=== PATIENT | female | born 1960 | race American Indian/Alaskan Native ===

== ENCOUNTER 2019-03-12 06:21 | Day surgery (SDC) | payer BC ==
[2019-03-12] MEDS ORDERED: NACL 0.9% 500 ML 500 ML IV SCH (07:00)
[2019-03-12] MEDS ORDERED: ADRENALIN ONE (08:38)
[2019-03-12] MEDS ORDERED: NITROSTAT SL ONE (08:38)
[2019-03-12] MEDS ORDERED: ATROPINE 0.1% (CARDIAC) ONE (08:38)
--- NOTE | 2019-03-12 09:19 | Short Stay Summary ---
Short Stay Documentation Date of service: 03/12/19 - History H&P: obtained from office - Allergies and Medications Current Medications: Allergies ibuprofen [From Motrin] Allergy (Severe, Verified 03/12/19 06:46) CAUSES RENAL FAILURE ketorolac [From Toradol] Allergy (Severe, Verified 03/12/19 06:46) CAUSES REANAL FAILURE Home Medications Medication Instructions Recorded Confirmed Last Taken Type Butalbit/Acetamin/Caff/Codeine 1 tab PO PRN PRN 03/12/19 03/12/19 03/11/19 History [Vvunac-Xvghootocpf-Wmxv-Codein] 1 tab Citalopram [Celexa] 20 mg PO DAILY 03/12/19 03/12/19 03/11/19 History 20mg Famotidine [Pepcid] 20 mg PO DAILY 03/12/19 03/12/19 03/11/19 History 20mg Gabapentin [Neurontin] 300 mg PO BID 03/12/19 03/12/19 1 Day Ago History ~03/11/19 HYDROcodone/APAP 5-325 [Nicholson 1 tab PO Q6H PRN 03/12/19 03/12/19 03/10/19 History 5-325 mg TAB] 1 tab Lisinopril [Zestril TAB] 10 mg PO DAILY 03/12/19 03/12/19 02/19/19 History 10mg Omeprazole 40 mg PO DAILY 03/12/19 03/12/19 03/11/19 History 40mg Promethazine [Phenergan] 25 mg PO BID PRN 03/12/19 03/12/19 03/11/19 History 25mg Ranitidine HCl [Zantac] 300 mg PO HS 03/12/19 03/12/19 03/11/19 History 300mg clonazePAM [KlonoPIN] 0.5 mg PO PRN PRN 03/12/19 03/12/19 03/11/19 History 0.5mg Active Medications Sodium Chloride (Nacl 0.9% 500 Ml) 500 mls @ 50 mls/hr IV DIRECT ESTEBAN Last Admin: 03/12/19 07:54 Dose: 50 mls/hr Documented by: - Physical exam General appearance: no acute distress Integumentary: no rash HEENT: Atraumatic Lungs: Clear to auscultation Breasts: deferred Heart: Regular rate Gastrointestinal: normal Female Genitourinary: deferred Rectal Exam: deferred Extremities: no ischemia Neurological: Normal gait - Brief post op/procedure progress note Date of procedure: 03/12/19 Pre-op diagnosis: Syncope Post-op diagnosis: same Procedure: TTT Anesthesia: none Findings: See report Surgeon: HEAVEN HERNANDEZ Estimated blood loss: none Pathology: none Condition: stable - Hospital course Hospital course: Uneventful - Disposition Condition at discharge: Good Disposition: DC-01 TO HOME OR SELFCARE Short Stay Discharge Plan Activity: advance as tolerated Weight Bearing Status: Weight Bear as Tolerated Diet: low fat, low cholesterol, low salt Follow up with: MONIQUE FRAUSTO MD [Primary Care Provider] - 7 Days
[2019-03-12] MEDS ORDERED: TYLENOL PO ONE (09:34)
[2019-03-12] MEDS ORDERED: TYLENOL ONE (09:36)
[2019-03-12 10:01] VITALS: BP 100/60
--- NOTE | 2019-03-12 17:09 | Procedure Note ---
TILT TABLE TEST ORDERING PHYSICIAN: Ridge Clemons MD INDICATION: Syncope. DESCRIPTION OF PROCEDURE: After obtaining written consent, the patient was brought to the liaison inspection laboratory assistant area. The patient was then secured to the tilt table test. The patient's supine blood pressure immediately before tilting was 133/93 with a heart rate of 79 beats per minute. The patient was subsequently tilted to 85 degrees from horizontal. One minute after tilting, her blood pressure was 142/91 with a heart rate of 77 beats per minute. The patient was kept in the upright position for a total of 10 minutes. At the end of which her blood pressure was 137/97 with a heart rate of 66 beats per minute. Subsequently, the patient was given 0.4 mg of sublingual nitroglycerin. Her lowest recorded blood pressure post-nitroglycerin was 114/77 and her highest recorded heart rate was 131 beats per minute. There were no episodes of syncope, bradyarrhythmias or pauses. IMPRESSION: This is a negative tilt table test with no evidence of vasodepressor or a cardioinhibitory response to nitroglycerin. RECOMMENDATION: Continue current management and follow up with referring curatorial assistant. JOB# [id number] YARY/DOROTHY
== END 2019-03-12 10:15 | disposition home or self-care (01) ==
LOC: CATHLABREC 06:21
PROVIDERS: ATTEND Internal Medicine
DX: R55 Syncope and collapse (principal); I10 Essential (primary) hypertension; G47.30 Sleep apnea, unspecified; F32.9 Major depressive disorder, single episode, unspecified; Z98.890 Other specified postprocedural states; Z83.3 Family history of diabetes mellitus; Z79.899 Other long term (current) drug therapy; Z87.891 Personal history of nicotine dependence; Z88.8 Allergy status to other drugs, medicaments and biological substances; Z82.49 Family history of ischemic heart disease and other diseases of the circulatory system
CPT/HCPCS: 93660; J7040; J0153; J0171; J0461